=== PATIENT | female | born 1970 ===

== ENCOUNTER → 2024-06-07 | Outpatient (CLI) | payer OTHER ==
[2024-06-07 17:04] LABS: Follicle Stimulating Hormone 64.5 mIU/ml
[2024-06-07 17:05] LABS: Thyroid Stimulating Hormone 0.775 uIU/mL (0.360-4.800)
== END | disposition home or self-care (01) ==
LOC: LAB SHORT 14:21 → LAB 14:21
PROVIDERS: Advanced Practice Midwife
DX: Z00.00 Encounter for general adult medical examination without abnormal findings (principal); N95.0 Postmenopausal bleeding
CPT/HCPCS: 83001; 84443

== ENCOUNTER → 2024-06-26 | Outpatient (CLI) | payer OTHER | LOC: LAB SHORT 07:32 → PLD 07:32 → LAB 07:32 | DX: R93.89 Abnormal findings on diagnostic imaging of other specified body structures (principal) | CPT/HCPCS: 88305 ==